=== PATIENT | female | born 1995 | race Caucasian/White ===

== ENCOUNTER 2017-11-12 13:20 | Emergency (ER) | payer BC, OTHER ==
[2017-11-12 13:51] VITALS: BP 135/86
--- NOTE | 2017-11-12 13:53 | UC ---
UC General HPI - HPI Summary HPI Summary: PT IS C/O A SORE THROAT AND CONGESTED COUGH FOR ABOUT 1 WEEK. DENIES SOB. - History of Current Complaint Stated Complaint: ST/COUGH/BODY ACHES Time Seen by Provider: 11/12/17 13:43 Hx Obtained From: Patient Hx Last Menstrual Period: 12/19/15 Onset/Duration: Gradual Onset Timing: Constant Associated Signs & Symptoms: Positive: Cough - Allergy/Home Medications Allergies/Adverse Reactions: Allergies Allergy/AdvReac Type Severity Reaction Status Date / Time No Known Allergies Allergy Verified 11/12/17 13:52 Home Medications: Home Medications Dextromethorphn/Acetaminoph/Cp [Vicks Nyquil Cold & Flu N] 1 liq PO BEDTIME PRN 11/12/17 [History Confirmed 11/12/17] Phenylephrine/Dm/Acetaminop/GG [Vicks Dayquil Severe Cold-Flu] 236 ml PO DAILY PRN 11/12/17 [History Confirmed 11/12/17] PMH/Surg Hx/FS Hx/Imm Hx Previously Healthy: Yes - Surgical History Surgical History: None - Family History Known Family History: Positive: Diabetes - maternal grandmother and grandfather Negative: Hypertension, Respiratory Disease - Social History Occupation: Student Lives: Dormitory/Roommates Alcohol Use: Weekly Alcohol Amount: weekends Substance Use Type: None Smoking Status (MU): Never Smoked Tobacco - Immunization History Most Recent Influenza Vaccination: none Vaccination Up to Date: Yes Review of Systems Constitutional: Negative Skin: Negative Eyes: Negative ENT: Sore Throat Respiratory: Cough Cardiovascular: Negative Gastrointestinal: Negative Genitourinary: Negative Motor: Negative Neurovascular: Negative Musculoskeletal: Negative Neurological: Negative Psychological: Negative Is Patient Immunocompromised?: No All Other Systems Reviewed And Are Negative: Yes Physical Exam Triage Information Reviewed: Yes Appearance: Well-Appearing Vital Signs Reviewed: Yes Eyes: Positive: Conjunctiva Clear ENT: Positive: Pharyngeal erythema, TMs normal, Uvula midline. Negative: Nasal congestion, Nasal drainage, Trismus, Muffled voice Neck: Positive: Supple, Tenderness @ - peritonsilar nodes, Enlarged Nodes @ - peritonsilar. Negative: Nuchal Rigidity Respiratory: Positive: Lungs clear, Normal breath sounds, Other: - cough is congested Cardiovascular: Positive: RRR, No Murmur. Negative: Tachycardia Abdomen Description: Positive: Nontender, No Organomegaly, Soft Bowel Sounds: Positive: Present Musculoskeletal: Positive: ROM Intact Neurological: Positive: Alert Psychological: Positive: Age Appropriate Behavior Skin Exam: Normal Diagnostics - Laboratory Diagnostic Studies Completed/Ordered: rapid strep=positive Course/Dx - Course Course Of Treatment: rapid strep=positive. - Differential Dx - Multi-Symptom Provider Diagnoses: strep throat. bronchitis Discharge - Sign-Out/Discharge Documenting (check all that apply): Patient Departure All imaging exams completed and their final reports reviewed: No Studies - Discharge Plan Condition: Stable Disposition: HOME Prescriptions: Albuterol HFA INHALER* [Ventolin HFA Inhaler*] 2 puff INH Q6H #1 mdi Amoxicillin PO (*) [Amoxicillin 875 MG (*)] 875 mg PO BID 10 Days #20 tab Patient Education Materials: Strep Throat (ED), Acute Bronchitis (ED) Forms: *School Release Ref[facility] [Outside] - 5 Days - Billing Disposition and Condition Condition: STABLE Disposition: Home - Attestation Statements Provider Attestation: Per institutional requirements, I have reviewed the chart, however, I was not consulted specifically or made aware of this patient by the midlevel provider. I did not personally evaluate, interact with , or disposition this patient.
[2017-11-12] MEDS ORDERED: Albuterol 2.5 MG/3 ML NEB.SOL* (0.083%) INH ONE (14:01)
== END 2017-11-12 14:29 | disposition home or self-care (01) ==
LOC: UCCORT 13:20
DX: J02.0 Streptococcal pharyngitis (principal); J40 Bronchitis, not specified as acute or chronic
CPT/HCPCS: 87651; 99212; G0463